=== PATIENT | male | born 1990 | race African-American/Black ===

== ENCOUNTER 2020-11-05 16:35 | Outpatient (REF) | payer MEDICAID, SELFPAY ==
--- NOTE | ~2020-11-05 | US_ITS ---
EXAMINATION: US SCROTUM CLINICAL INFORMATION: Left testicular pain. COMPARISON: None TECHNIQUE: A sonogram of the scrotum was performed assessing johnson-scale appearance and color Doppler flow. Spectral Doppler analysis of the arterial and venous flow were performed in the testes bilaterally. FINDINGS: RIGHT: Right testicle measures 4.7 x 2.4 x 3.3 cm, volume 19.5 mL. No focal testicular parenchymal lesions are visualized. Spectral Doppler analysis of the arterial and venous flow is normal in the right testis. Right epididymal head is normal in size. No right hydrocele or varicocele is seen. Right epididymal Doppler flow is normal. LEFT: Left testicle measures 4.5 x 1.9 x 3.0 cm, volume 13.4 mL. No focal testicular parenchymal lesions are visualized. Spectral Doppler analysis of the arterial and venous flow is normal in the left testis. Left epididymal head is normal in size. There is a 3 mm left epididymal head cyst. Left epididymal Doppler flow is normal. There is a small left hydrocele. There is a small left varicocele. US/US scrotum IMPRESSION: Small left hydrocele and small left varicocele. Small left epididymal head cyst.
== END 2020-11-05 16:36 | disposition home or self-care (01) ==
LOC: HO.US 16:35
PROVIDERS: PCP Internal Medicine Geriatric Medicine; Visit Provider Internal Medicine
DX: N50.812 Left testicular pain (principal)
CPT/HCPCS: 76870

== ENCOUNTER 2020-11-13 09:30 | Outpatient (REF) | payer MEDICAID, SELFPAY ==
[2020-11-13 10:35] LABS: Lactic Acid 1.1 mmol/L (0.5-2.0)
[2020-11-13 11:15] LABS: Erythrocyte Sedimentation Rate 6 MM/HR (0-15)
[2020-11-14 09:37] LABS: Lyme Abs Screen <0.90 index
[2020-11-20 12:12] LABS: Anti Nuclear Antibody Screen NEGATIVE (NEGATIVE)
== END 2020-11-13 09:31 | disposition home or self-care (01) ==
LOC: HO.LAB 09:30
PROVIDERS: Psychiatry & Neurology Neurology; PCP Internal Medicine Geriatric Medicine; Visit Provider Internal Medicine
DX: G43.909 Migraine, unspecified, not intractable, without status migrainosus (principal); F44.9 Dissociative and conversion disorder, unspecified
CPT/HCPCS: 36415; 83605; 85652; 86038; 86039; 86617; 86618

== ENCOUNTER 2021-01-01 10:24 | Emergency (ER) | payer MEDICAID, SELFPAY ==
[2021-01-01 10:41] VITALS: BP 143/81; PULSE 95; RESP 18; TEMP 36.8; O2SAT 96; BMI 34.4
--- NOTE | 2021-01-01 11:11 | ED_ITS ---
HPI - Neuro Symptoms/Deficit General Chief Complaint: Neuro Symptoms/Deficit Stated Complaint: SEIZURES Time Seen by Provider: 01/01/21 11:10 Source: patient Mode of arrival: ambulatory Limitations: no limitations History of Present Illness HPI Narrative: weakness of L side and shaking of whole body while awake - normal CT scan/MRI and neg EEG per his reports wants to be seen at [facility] but states his PCP will not unless he keeps having episodes Onset (ago): month(s) (2) Location: left arm and left leg History of same: Yes Severity: mild Quality: weak and numb Context: gradual onset On Anticoagulants: No Associated symptoms: other (stutters, tremors) Treatments Prior to Arrival: none Related Data Allergies Allergy/AdvReac Type Severity Reaction Status Date / Time bee pollen [BEE STINGS] Allergy Unknown RASH Unverified 11/30/19 16:31 No Known Drug Allergies Allergy Unknown NONE Unverified 11/30/19 16:31 [NO KNOWN DRUG ALLERGIES] cow Allergy Unknown Uncoded 07/01/18 00:00 lactosee Allergy Unknown Uncoded 07/01/18 00:00 seafood Allergy Unknown Uncoded 07/01/18 00:00 SHELLFISH Allergy Unknown HIVES Uncoded 11/30/19 16:31 Review of Systems Review of Systems: Constitutional : No Weight loss, No Fever, No Chills, No Fatigue, No Malaise ENT/Mouth : No sore throat, No Rhinorrhea Eyes: No Eye Pain, No Swelling, No Redness Cardiovascular : No Chest Pain, No SOB, No Dyspnea on Exertion, No Orthopnea, No Edema, No Palpitations Respiratory : No Cough, No Sputum, No Wheezing Gastrointestinal : No Nausea, No Vomiting, No Diarrhea, No Constipation, No abdominal Pain, No Hematochezia, No Melena Genitourinary : No Dysuria, No Urinary Frequency, No Hematuria, Musculoskeletal : No joint pain, No Myalgias, No Joint Swelling Skin : No Skin Lesions, No rash Neuro : pos Weakness, pos Numbness, No Dizziness, No Headache, pos stutter, pos abnormal movements Psych : No Anxiety/Panic, No Depression Heme/Lymph: No Bruising, No Bleeding,No Lymphadenopathy Endocrine : No Polyuria, No Polydipsia All other systems reviewed and are negative [facility] Past Medical History Medical History (Updated 01/01/21 @ 11:37 by Ermelinda Ordonez DO) Weakness Social History Social History Alcohol intake: never Patient Tobacco Use Status: Never used Tobacco Use of substances other than those prescribed or required for medical reasons: Yes Substance Use Type: Marijuana Advance Directives: No Physical Exam Vital Signs: Vital Signs: Last Vital Signs Temp 98.3 F 01/01/21 10:41 Pulse 95 01/01/21 10:41 Resp 18 01/01/21 10:41 BP 143/81 H 01/01/21 10:41 Pulse Ox 96 01/01/21 10:41 Body Mass Index 34.4 Appearance: Alert. Oriented X3. No acute distress. Eyes: Pupils equal, round and reactive to light. ENT: Pharynx normal. Neck: Normal inspection. Neck supple. CVS: Normal heart rate and rhythm. Pulses normal. Respiratory: No respiratory distress. Breath sounds normal. Abdomen: Soft and nontender. Skin: Skin warm and dry. Normal skin color. Normal skin turgor. Extremities: No lower extremity edema. No calf ttp Neuro: Oriented X 3. No motor deficit. No sensory deficit. intermittent stutter, CN2-12 intact, L side 4+ /5 UE and LE - states 2 months MDM - Neuro Symptoms/Deficit MDM Narrative Medical decision making narrative: 30 yo male with 2 months of issues - L sided weakness and intermittent shaking of his whole body while awake. Normal CT scan and MRI, neg EEG. Wants second opinion in [place]. He has no new complaints - at this time he can follow up with his PCP for [facility] referral he no longer wants to see our Neurologist. He requires no emergent outpatient follow up Discharge Plan Discharge Clinical Impression: Abnormal movement Patient Disposition: Home, Self-Care Instructions: Tremors (ED) Additional Instructions: please follow up with specialist given your multiple complaints and concern over the past two months your EEG showed no seizure activity
[2021-01-01 11:50] VITALS: BP 144/90; PULSE 87; RESP 15; O2SAT 98
== END 2021-01-01 11:51 | disposition home or self-care (01) ==
PROVIDERS: Emergency Provider Emergency Medicine; PCP Internal Medicine Geriatric Medicine
DX: G25.9 Extrapyramidal and movement disorder, unspecified (principal)
CPT/HCPCS: 99283; 99284

== ENCOUNTER 2021-09-25 15:02 | Emergency (ER) | payer MEDICAID, SELFPAY ==
[2021-09-25 16:15] VITALS: BP 127/87; PULSE 85; RESP 18; TEMP 36.6; O2SAT 98; BMI 33.9
[2021-09-25 16:33] LABS: Hematocrit 41.7 % (42.0-52.0); Hemoglobin 14.4 g/dl (14.0-18.0); Mean Corpuscular HGB Conc 34.5 g/dl (31.0-36.0); Mean Corpuscular Hemoglobin 29.8 pg (27.0-33.0); Mean Corpuscular Volume 86.2 fL (80.0-98.0); Mean Platelet Volume 9.5 fL (9.4-12.4); Platelet Count 277 X10*3/uL (160-400); Red Blood Count 4.84 X10*6/uL (4.60-5.80); Red Cell Distribution Width 12.5 % (11.0-16.0)
[2021-09-25 16:46] LABS: Anion Gap 11 (12-20); Blood Urea Nitrogen 14 mg/dL (9-16); Calcium 9.5 mg/dL (8.4-10.2); Carbon Dioxide 29 mmol/L (22-29); Chloride 105 mmol/L (96-108); Creatinine Clr Calc Pharmacy 141.8; Estimated Glomerular Filt Rate > 60; Glucose Random 100 mg/dL (60-115); Potassium 4.2 mmol/L (3.3-5.1); Sodium 141 mmol/L (135-145)
--- NOTE | 2021-09-25 22:12 | ED_ITS ---
HPI - Seizure General Chief Complaint: Seizure Stated Complaint: seizure 09/25 hx of seizures Time Seen by Provider: 09/25/21 22:11 Source: patient Mode of arrival: ambulatory Limitations: no limitations History of Present Illness HPI Narrative: 31-year-old male past medical history significant per patient significant for functional seizures, pseudoseizures, patient tells me that he is here today because he would like documentation that he had a seizure at approximately 10:00 today, patient tells me he remembers having the seizure, he tells me he started feeling like his entire body was shaking and he sat down on a chair, he tells me he did not lose control of his bladder bowel, no tongue bite, no post seizure confusion. Patient tells me that he has been taking Topamax which she was prescribed by his neurologist a while ago, he tells me after he gets seizures he starts taking Topamax which seems to work. Also tells me that smoking marijuana works. I asked him if he was followed by a neurologist and he tells me he is fired multiple neurologist including 2 neurologist here at [facility] Patient tells me he is feeling fine right now and has no complaints however he would like documentation that he had a seizure so he can be seen at [facility] or at a different hospital for his ?seizures ?. Patient tells me that he has been having seizures since October of 2020, he tells me since then he has been ambulating with a cane, he tells me both his PCP and the neurologist to have seen him are aware that he is using this gain. He tells me that his PCP is out of [facility], he tells me his PCP has used the word pseudoseizures and he is wondering how he can get rid of this kind of seizures. Patient tells me he has had multiple MRIs, EEGs, head CTs which have all been within normal limits. Denies headache, vision changes, nausea, vomiting, diarrhea, urinary or bowel incontinence, abdominal pain, fevers, chills, vision changes, dizziness. Denies anxiety or depression or psych diagnosis. Patient reports frequent marijuana use. He also tells me he is homeless and walking everywhere but moments after he tells me that he drives. Father at the bedside. Related Data Allergies Allergy/AdvReac Type Severity Reaction Status Date / Time bee pollen [BEE STINGS] Allergy Unknown RASH Unverified 11/30/19 16:31 No Known Drug Allergies Allergy Unknown NONE Unverified 11/30/19 16:31 [NO KNOWN DRUG ALLERGIES] cow Allergy Unknown Uncoded 07/01/18 00:00 lactosee Allergy Unknown Uncoded 07/01/18 00:00 seafood Allergy Unknown Uncoded 07/01/18 00:00 SHELLFISH Allergy Unknown HIVES Uncoded 11/30/19 16:31 Review of Systems Review of Systems: Constitutional : No Weight loss, No Fever, No Chills, No Fatigue, No Malaise ENT/Mouth : No sore throat, No Rhinorrhea Eyes: No Eye Pain, No Swelling, No Redness Cardiovascular : No Chest Pain, No SOB, No Dyspnea on Exertion, No Orthopnea, No Edema, No Palpitations Respiratory : No Cough, No Sputum, No Wheezing Gastrointestinal : No Nausea, No Vomiting, No Diarrhea, No Constipation, No abdominal Pain, No Hematochezia, No Melena Genitourinary : No Dysuria, No Urinary Frequency, No Hematuria, Musculoskeletal : No joint pain, No Myalgias, No Joint Swelling Skin : No Skin Lesions, No rash Neuro : No Weakness, No Numbness, No Dizziness, No Headache Psych : No Anxiety/Panic, No Depression All other systems reviewed and are negative Yes all other systems are reviewed and are negative [facility] Past Medical History Attestation statement: The following information was validated with the patient. Source: old records reviewed and nursing notes reviewed Medical History (Updated 09/25/21 @ 23:19 by MATT Nixon) Weakness Social History Social History Alcohol intake: never Patient Tobacco Use Status: Never used Tobacco Substance Use Type: Marijuana Advance Directives: No Advance Directives Information Provided: No Physical Exam Vital Signs: Vital Signs: Last Vital Signs Temp 97.8 F 09/25/21 23:04 Pulse 78 09/25/21 23:04 Resp 19 09/25/21 23:04 BP 126/78 09/25/21 23:04 Pulse Ox 98 09/25/21 23:04 O2 Del Method 09/25/21 23:04 BMI result Body Mass Index 33.9 Vital signs stable Appearance: Alert.? Oriented X3.? No acute distress.? Head: Normocephalic, atraumatic, no step-offs or deformities Eyes: Pupils equal, round and reactive to light.? ENT: Pharynx normal.? Neck: Normal inspection.? Neck supple.? CVS: Normal heart rate and rhythm.? Pulses normal.? Respiratory: No respiratory distress.? Breath sounds normal.? Abdomen: Soft and nontender.? Skin: Skin warm and dry.? Normal skin color.? Normal skin turgor.? Extremities: No lower extremity edema.? No calf ttp. 4/5 strength to bilateral upper and lower extremities, patient tells me he has intermittent left-sided severe weakness however cannot appreciate this on exam. ( this has been going on for months.) Back: No midline tenderness, no C-spine tenderness, full range of motion, no CVA tenderness bilaterally Neuro: Oriented X 3.? No motor deficit.? No sensory deficit. CN 2-12 intact. Normal finger to nose, heel to proctor, ambulating w/ normal cordination w/ cane Course Reevaluation(s) Reevaluation #1: CBC with no acute findings. Chemistry with no acute findings. Patient remains without seizure-like activity. No headache, head trauma no need for head CT at this time. I told patient to refrain from driving until he is cleared by Neurology. Patient should not be driving or operating machinery. I adivised him to follow up with PCP as he needs referral to either [facility], [facility], [facility] or other ospitals in the area. Patient refusing to go to our neurologist he states he fired them Time: 22:45 MDM - Seizure [facility] Narrative Medical decision making narrative: [id number] 31-year-old male presents reporting he had a seizure at 10:00 which she remembers clearly, he remember shaking, sitting down, he tells me he gets these often. Has been told he has pseudoseizures in the past had multiple workups by Neurology all of which have been negative. He tells me he has fired every neurologist he has had. Taking Topamax cause he tells me it helps his symptoms. Physical examination 4/5 strength to bilateral upper and lower extremities, this has been present for months, he has received evaluation from Neurology and PCP for this, Normal cerebellar function Plan at this time is basic labs. Patient did not hit his head or lose consciousness during this event therefore no need for head CT at this time low suspicion for ICH. Cerebellar function is intact, unlikely that this is a posterior infarct. Medical Records Attestation: I reviewed the patient's medical records. Lab Data Attestation: I reviewed the patient's lab results. Result diagrams: 09/25/21 16:27 09/25/21 16:27 Labs: Lab Results 09/25/21 09/25/21 Range/Units 16:27 16:27 WBC 8.0 (4.8-10.8) X10*3/uL RBC 4.84 (4.60-5.80) X10*6/uL Hgb 14.4 (14.0-18.0) g/dl Hct 41.7 L (42.0-52.0) % MCV 86.2 (80.0-98.0) fL MCH 29.8 (27.0-33.0) pg MCHC 34.5 (31.0-36.0) g/dl RDW 12.5 (11.0-16.0) % Plt Count 277 (160-400) X10*3/uL MPV 9.5 (9.4-12.4) fL Absolute Nucleated RBC 0.000 (0.0-0.012) X10*3/uL Nucleated RBC % (auto) 0.0 (0.0-0.2) /100WBC Sodium 141 (135-145) mmol/L Potassium 4.2 (3.3-5.1) mmol/L Chloride 105 (96-108) mmol/L Carbon Dioxide 29 (22-29) mmol/L Anion Gap 11 L (12-20) BUN 14 (9-16) mg/dL Creatinine 0.99 (0.5-1.4) mg/dL Estim Creat Clear Calc 141.8 Estimated GFR > 60 Random Glucose 100 (60-115) mg/dL Calcium 9.5 (8.4-10.2) mg/dL Critical Care Time Critical Care Time Critical Care Time: No Discharge Plan Discharge Clinical Impression: Abnormal movement Patient Disposition: Home, Self-Care Additional Instructions: Take your medications as prescribed. If you were prescribed antibiotics today, it is important that you take your medication to their entirety, do not skip any doses, do not finish them early. Follow-up with your primary care provider this week. Return to the emergency department with new or worsening symptoms. Such as fevers, chills, chest pain, shortness of breath, nausea, vomiting, dizziness, headache, vision changes, lethargy In case of emergency call 911 You need to be followed by a neurologist. If you have a seizure it is important that you present to the emergency department immediately after, not 5 or 6 hours afterwards. Case of an emergency call 911. Please follow-up with your PCP as soon as possible as they will be able to refer you to a different facility, I have attached the information for our neurologist in case you change your mind. Under no circumstances should you be driving or operating a motor vehicle. Until you get cleared by Neurology. Referrals: Yuridia Izaguirre MD [Physician] - 2 days Name,MD Aaron [Primary Care Provider] - 1 day Stand Alone Forms: Work/School Release
[2021-09-25 23:04] VITALS: BP 126/78; PULSE 78; RESP 19; TEMP 36.6; O2SAT 98
== END 2021-09-26 00:08 | disposition home or self-care (01) ==
PROVIDERS: Emergency Provider Internal Medicine; PCP Internal Medicine Geriatric Medicine
DX: R56.9 Unspecified convulsions (principal); Z79.899 Other long term (current) drug therapy
CPT/HCPCS: 36415; 80048; 85027; 99282; 99283

== ENCOUNTER 2023-01-01 11:24 | Outpatient (REF) | payer MEDICAID, SELFPAY ==
[2023-01-01 14:10] LABS: Anion Gap 14 (12-20); Blood Urea Nitrogen 9 mg/dL (9-16); Calcium 10.1 mg/dL (8.4-10.2); Carbon Dioxide 24 mmol/L (22-29); Chloride 106 mmol/L (96-108); Estimated Glomerular Filt Rate > 60; Glucose Random 108 mg/dL (60-115); Potassium 4.3 mmol/L (3.3-5.1); Sodium 140 mmol/L (135-145)
== END 2023-01-01 11:25 | disposition home or self-care (01) ==
LOC: HO.HHCL 11:24
PROVIDERS: Visit Provider Internal Medicine Geriatric Medicine
DX: I42.9 Cardiomyopathy, unspecified (principal); F44.7 Conversion disorder with mixed symptom presentation
CPT/HCPCS: 36415; 80048

== ENCOUNTER 2023-07-09 12:55 | Outpatient (REF) | payer MEDICAID, SELFPAY ==
[2023-07-10 04:39] LABS: HIV AB/AG Nonreactive (Nonreactive); HIV Num 1 0.04 S/CO (0.00-0.99); ~HepC Num1 0.15 S/CO (0.00-0.79); ~Hepatitis C Antibody Nonreactive (Nonreactive)
[2023-07-10 06:47] LABS: CT PCR NOT DETECTED (Not Detect.); NG PCR NOT DETECTED (Not Detect.)
[2023-07-12 13:53] LABS: RPR Rapid Plasma Reagin NON-REACTIVE (NON-REACTIVE)
== END 2023-07-09 12:56 | disposition home or self-care (01) ==
LOC: HO.HHCL 12:55
PROVIDERS: Visit Provider Internal Medicine Geriatric Medicine
DX: I42.9 Cardiomyopathy, unspecified (principal); F44.7 Conversion disorder with mixed symptom presentation; Z59.00 Homelessness unspecified
CPT/HCPCS: 0353U; 36415; 86592; 86803; 87389

== ENCOUNTER 2023-11-04 15:36 | Outpatient (REF) | payer MEDICAID, SELFPAY ==
[2023-11-04 17:48] LABS: Estimated Average Glucose 100 mg/dL; Hemoglobin A1c % 5.1 % (<6.0)
[2023-11-04 17:54] LABS: Anion Gap 12 (12-20); Blood Urea Nitrogen 9 mg/dL (9-16); Calcium 9.6 mg/dL (8.4-10.2); Carbon Dioxide 26 mmol/L (22-29); Chloride 102 mmol/L (96-108); Estimated Glomerular Filt Rate > 60; Glucose Random 97 mg/dL (60-115); Potassium 3.9 mmol/L (3.3-5.1); Sodium 136 mmol/L (135-145)
[2023-11-04 19:15] LABS: CT PCR NOT DETECTED (Not Detect.); NG PCR NOT DETECTED (Not Detect.)
[2023-11-05 08:27] LABS: HBc Num1 0.17 S/CO (0.00-0.79); HIV AB/AG Nonreactive (Nonreactive); HIV Num 1 0.48 S/CO (0.00-0.99); Hepatitis A Antibody IgM 0.15 Index (0-0.79); Hepatitis B Core Antibody Nonreactive (Nonreactive); Hepatitis B Surface Antigen Negative (Negative); ~HepC Num1 0.15 S/CO (0.00-0.79); ~Hepatitis A Antibody IgM Nonreactive (Nonreactive); ~Hepatitis B Surface Antibody NONREACTIVE (Nonreactive); ~Hepatitis C Antibody Nonreactive (Nonreactive)
[2023-11-05 08:30] LABS: Syphilis Screen Nonreactive (Nonreactive)
[2023-11-07 00:34] LABS: TS Negative Control Passed; TS Panel A 0; TS Panel B 0; TS Positive Control Passed; TSpotTB Negative (Negative)
[2023-11-09 20:48] LABS: Herpes Simplex Type 2 IgG 1.52 index
== END 2023-11-04 15:37 | disposition home or self-care (01) ==
LOC: HO.HHCL 15:36
PROVIDERS: Visit Provider Internal Medicine
DX: Z00.00 Encounter for general adult medical examination without abnormal findings (principal); Z11.3 Encounter for screening for infections with a predominantly sexual mode of transmission; Z91.89 Other specified personal risk factors, not elsewhere classified; E66.09 Other obesity due to excess calories; Z68.33 Body mass index [BMI] 33.0-33.9, adult
CPT/HCPCS: 80048; 83036; 86481; 86695; 86696; 86704; 86706; 86709; 86780; 86803; 87340; 87389; 87491; 87591

== ENCOUNTER 2025-01-02 09:48 | Outpatient (REF) | payer MEDICAID, SELFPAY ==
[2025-01-02 12:37] LABS: Albumin Level 4.7 g/dL (3.5-5.0); Alkaline Phosphatase 108 U/L (39-117); Aspartate Amino Transferase 30 U/L (5-37); Estimated Glomerular Filt Rate > 60; Total Protein 7.6 g/dL (6.5-8.0)
[2025-01-02 12:45] LABS: Alanine Aminotransferase 40 U/L (0-40)
[2025-01-02 13:45] LABS: Syphilis Screen Nonreactive (Nonreactive); ~HepC Num1 0.12 S/CO (0.00-0.79); ~Hepatitis C Antibody Nonreactive (Nonreactive)
[2025-01-04 00:12] LABS: HIV RNA PCR Qn Copies NOT DETECTED copies/mL (NOT DETECTED); HIV RNA PCR Qn Log Copies NOT DETECTED (NOT DETECTED)
== END 2025-01-02 09:49 | disposition home or self-care (01) ==
LOC: HO.HHCL 09:48
PROVIDERS: PCP Internal Medicine Geriatric Medicine; Visit Provider Internal Medicine Geriatric Medicine
DX: Z11.3 Encounter for screening for infections with a predominantly sexual mode of transmission (principal); Z11.59 Encounter for screening for other viral diseases
CPT/HCPCS: 36415; 80076; 82565; 86780; 86803; 87536